=== PATIENT | female | born 1960 | race Caucasian/White ===

== ENCOUNTER 2017-10-01 12:47 | Day surgery (SDC) | payer BC ==
[2017-09-02 16:05] VITALS: BMI 29.0
[~2017-10-01] VITALS: Ht 160 cm; Wt 75.0 kg
--- NOTE | 2017-10-01 11:21 | History and Physical ---
History & Physical Date Oct 01, 2017. Chief Complaint right foot pain History of Present Illness The patient is a 57 year old female with complaints of right foot mass that has gotten larger and more painful. She had an MRI done that noted a ganglion cyst of the right foot. She is now being set up for surgical excision. Past Medical/Surgical History Past medical Hx: Depression, Seasonal allergies, Asthma, Scoliosis Past surgical hx: hysterectomy, breast reduction Social hx: denies tobacco and alcohol use. Allergies Coded Allergies: Neomycin (Verified Allergy, Severe, EYE - ITCHY,WATERY,BURNING - LOCALIZED , 09/02/17) Dairy (Verified Allergy, Mild, COUGHING, 09/02/17) PER ALLERGY TESTING Eggs or Egg-derived Products (Verified Allergy, Mild, COUGHING, 09/02/17) PER ALLERGY TESTING OKAY TAKING FLU VACCINE Fish (Verified Allergy, Mild, COUGHING, 09/02/17) OKAY WITH CONTRAST DYE FROM HYSTEROSALPINGOGRAM (HSG) PER ALLERGY TESTING NUTS (Verified Allergy, Mild, COUGHING, 09/02/17) PER ALLERGY MD Home Medications Scheduled Azelastine HCl (Azelastine Hydrochloride), 1 SPRAY NA BID Cholecalciferol (Vitamin D), 1,000 UNIT PO QAM Fish Oil ([place]-3), 1 CAP PO QAM Magnesium (Magnesium), 250 MG PO QAM Multivitamin (Multivitamin), 1 TAB PO QAM Sertraline (Zoloft), 25 MG PO QAM Vitamin E (Vitamin E), 400 UNITS PO QAM [Allergy Shot], 1 DOSE SQ WK Scheduled PRN Albuterol Hfa (Ventolin Hfa), 2 PUFFS INH Q6H PRN for Shortness of Breath Ibuprofen (Motrin), 400 MG PO BID PRN for Pain Physical Examination Skin: warm/dry, no rash Eyes: normal inspection ENT: normal ENT inspection Head: normocephalic, atraumatic Neck: supple, no adenopathy, trachea midline Respiratory/Chest: lungs clear, normal breath sounds, no respiratory distress Cardiovascular: regular rate, rhythm Abdomen / GI: normal bowel sounds, non tender Extremities: + pertinent finding (Right foot: mass at the dorsolateral aspect of the foot. Tender along the mass near the 4th/5th TMT joints. ) Neurologic/Psych: no motor/sensory deficits, alert, oriented x 3 Diagnosis Right foot ganglion cyst Plan of Treatment Recommend a right foot excision mass of the dorsolateral foot. All potential risks, benefits, complications, alternatives, and rehab have been discussed with the patient and she wishes to proceed. She will be scheduled for 10.01.17.
[~2017-10-01 12:47] MED LIST: ALLERGY SHOT SQ; AZEL0.1S2; CHOL100010 PO; IBUP-1459 PO; LACTATED RINGER'S 1000ML 1,000 ML IV SCH; MAGN250T9 PO; MULT-506 PO; OMEG10007 PO; SERT25TA PO; VITA1TAB4 PO; VNTHFA/IN INH
[2017-10-01 13:20] VITALS: BP 128/79; PULSE 66; TEMP 36.7; O2SAT 99; Ht 160 cm; Wt 75.0 kg
[2017-10-01] MEDS ORDERED: LIDOCAINE HCL 2% 2 ML VIAL (20MG/ML) ONE (13:32)
[2017-10-01] MEDS ORDERED: MIDAZOLAM HCL 1 MG/ML 2ML VIAL ONE (13:32)
[2017-10-01] MEDS ORDERED: ONDANSETRON INJ 2 MG/ML 2 ML VIAL ONE ×2 (13:32→16:14)
[2017-10-01] MEDS ORDERED: FENTANYL CITRATE INJ 50 MCG/1 ML 2 ML VIAL ONE (13:32)
[2017-10-01] MEDS ORDERED: PROPOFOL IV EMULSION 10 MG/ML 20 ML VIAL IV ONE (13:32)
--- NOTE | 2017-10-01 14:36 | History & Physical Bridge Note ---
H&P Re-Evaluation Bridge Note: I have examined the patient, reviewed the History & Physical and in the interval since the performance of the History & Physical I have noted the following changes of clinical significance: No changes noted
[2017-10-01] MEDS ORDERED: BACITRACIN 50000 UNIT VIAL ONE (15:08)
[2017-10-01] MEDS ORDERED: BUPIVACAINE 0.5 % 5 MG/1 ML MPF 30ML VIAL ONE (15:08)
[2017-10-01] MEDS ORDERED: CEFAZOLIN SOD 2000MG/15 ML IV PUSH IV ONE (15:15)
[2017-10-01] MEDS ORDERED: HYDROmorphone INJ 2 MG/ML SYR/VIAL ONE (15:35)
[2017-10-01] MEDS ORDERED: PROMETHAZINE HCL INJ 12.5 MG in SODIUM CHLORIDE 0.9% 50ML 50 ML IV PRN (16:00)
[2017-10-01] MEDS ORDERED: FENTANYL CITRATE INJ 50 MCG/1 ML 2 ML VIAL IV PRN (16:00)
[2017-10-01] MEDS ORDERED: EpHEDrine SULFATE INJ 50 MG/ML AMP IV PRN (16:00)
[2017-10-01] MEDS ORDERED: ONDANSETRON INJ 2 MG/ML 2 ML VIAL IV PRN (16:00)
[2017-10-01] MEDS ORDERED: HYDROmorphone INJ 1 MG/ML SYR IV PRN (16:00)
[2017-10-01] MEDS ORDERED: ATROPINE SULFATE 0.1 MG/ML 5ML SYR IV PRN (16:00)
--- NOTE | 2017-10-01 16:06 | [facility] Post Operative Brief Note ---
Immediate Operative Summary Operative Date Oct 01, 2017. Pre-Operative Diagnosis Ganglion Cyst Dorsolateral Right Foot Post-Operative Diagnosis Ganglion Cyst Dorsolateral Right Foot, Procedure(s) Performed 1. Right Foot Excision Ganglion Cyst 2. Capsulotomy 4th and 5th tarsometatarsal joints 3. Repair 4th and 5th tarsometatarsal joint capsules Surgeon Dr. Thompson Physician Scribe Surgeon(s) none Estimated Blood Loss 1 ml Findings Consistent with Post-Op Diagnosis Specimens a. right foot ganglion cyst Drains None Anesthesia Type General (with local) Complication(s) none Disposition Accompanied Pt To Recover: no Disposition: Recovery Room / PACU
[2017-10-01] MEDS ORDERED: ESMOLOL HCL 10 MG/ML 10 ML VIAL ONE (16:14)
[2017-10-01] MEDS ORDERED: DEXAMETHASONE SOD INJ 4 MG/ML VIAL ONE (16:14)
--- NOTE | 2017-10-01 16:22 | Discharge Instructions ---
Discharge Instructions Date of Service Oct 01, 2017. Admission Reason for Admission: Right Ankle/Foot Ganglion Cyst Discharge Discharge Diagnosis / Problem: Right Ankle/Foot Ganglion Cyst Discharge Goals Goal(s): Decrease discomfort, Improve function Activity Recommendations Activity Limitations: per Instructions/Follow-up section . Instructions / Follow-Up Instructions / Follow-Up ACTIVITY RECOMMENDATIONS: Limitations: Heel weight bearing only if able to tolerate. SPECIAL CARE INSTRUCTIONS: * Some drainage onto the dressing is normal and is no cause for alarm. * Some swelling is natural especially after walking. * When resting, keep your foot elevated above the level of your heart. * Call [facility] if you notice: -Increased drainage -Fever over 101 degrees F -Severe constant pain BANDAGE: * Leave bandage/cast in place unless otherwise directed. * Keep bandage/cast dry at all times. Begin EC ASA 81mg PO daily for 2 weeks FOLLOW UP VISIT WITH DR. POLK If appointment is not already scheduled: Please call [facility] after you get home today to schedule a follow-up appointment for [address] Polk at . Current Hospital Diet Patient's current hospital diet: Discharge Diet Recommended Diet: Regular Diet Procedures Procedures Performed: 1. Right Foot Excision Ganglion Cyst 2. Capsulotomy 4th and 5th tarsometatarsal joints 3. Repair 4th and 5th tarsometatarsal joint capsules Pending Studies Studies pending at discharge: no Medical Emergencies . Who to Call and When: Medical Emergencies: If at any time you feel your situation is an emergency, please call 911 immediately. . Non-Emergent Contact Non-Emergency issues call your: Surgeon Call Non-Emergent contact if: temperature is above 101, your pain is not controlled, wound has increased drainage, wound has increased redness . "Provider Documentation" section prepared by Cristiano Pokl. . VTE Core Measure Inpt VTE Proph given/why not?: Other Anticoagulation
--- NOTE | 2017-10-01 16:36 | Anesthesiology Progress Note ---
Anesthesia Post Op Note Date & Time Oct 01, 2017 at 16:36 Vital Signs Pain Intensity: 2 Vital Signs Past 12 Hours Date Time Temp Pulse Resp B/P (MAP) Pulse Ox O2 Delivery O2 Flow Rate FiO2 10/01/17 16:35 80 17 137/77 95 Room Air 10/01/17 16:25 83 22 131/76 100 Oxymask 10 10/01/17 16:15 100 15 137/76 100 Oxymask 10 10/01/17 16:09 36.3 88 20 104/83 100 Oxymask 10 10/01/17 13:20 36.7 66 18 128/79 (95) 99 Room Air Notes Mental Status: alert / awake / arousable, participated in evaluation Pt Amnestic to Procedure: Yes Nausea / Vomiting: adequately controlled Pain: adequately controlled Airway Patency, RR, SpO2: stable & adequate BP & HR: stable & adequate Hydration State: stable & adequate Anesthetic Complications: no major complications apparent
[2017-10-01 16:55] VITALS: BP 123/68; PULSE 71; TEMP 36.5; O2SAT 100
[2017-10-01 17:25] VITALS: BP 126/69; PULSE 74; TEMP 36.5; O2SAT 100
--- NOTE | 2017-10-01 18:30 | OPERATIVE REPORT ---
DATE OF OPERATION: 10/01/2017 PREOPERATIVE DIAGNOSIS: Ganglion cyst, dorsolateral right foot. POSTOPERATIVE DIAGNOSES: 1. Ganglion cyst, dorsal lateral right foot. 2. Tear of the joint capsule of the fourth and fifth tarsometatarsal joints. PROCEDURES: 1. Right foot excision ganglion cyst, dorsal lateral foot. 2. Capsulotomy of the fourth and fifth tarsometatarsal joints and exploration. 3. Repair of the fourth and fifth tarsometatarsal joint capsules. SURGEON: Dr. Thompson. CUSTOM DESIGNER: None. ANESTHESIA: General LMA with local. SPECIMENS: Ganglion cyst, dorsal lateral right foot. DRAINS: None. COMPLICATIONS: None. BLOOD LOSS: 2 mL. PERTINENT HISTORY: This is a 57-year-old female with chronic ongoing history of painful mass, dorsal lateral aspect of the right foot. She attempted and failed conservative management including shoewear modification, activity modification, observation, rest, anti-inflammatories, use of ice packs, heating packs and physician directed home exercises. She had radiographs and an MRI which demonstrated a septated lobulated fluid filled mass of dorsal lateral aspect of the right foot and she was then scheduled for surgery as indicated. All potential risks, benefits, complications, alternatives, rehab, potential for incomplete relief of symptoms, need for further surgery, DVT, PE, , persistent pain, swelling, scarring, weakness, neurovascular injury, persistent or recurrence were discussed with the patient. The patient decided to proceed with the procedure as indicated. DESCRIPTION OF PROCEDURE: The patient was taken to the operative suite and placed supine on the operating room table. I reviewed the consent and identification of proper operative site, the patient was anesthetized, LMA was placed. Tourniquet was placed high on the right thigh over cast padding; however, was not used during the case. Right lower extremity was then sterilely prepped and draped in usual fashion, elevated and exsanguinated with Esmarch bandage and Esmarch tourniquet applied over sterile surgical towel at the level of the ankle. Next, a 15 blade scalpel was used to make an incision centered over the mass over the dorsal lateral aspect of the right foot. This was at the level of the fourth and fifth tarsometatarsal joint. The incision was deepened through subcutaneous tissue, meticulous hemostasis was achieved with electrocautery. Full thickness skin flaps were developed. The sensory cutaneous nerves were identified, freed, retracted, and protected. Next, careful dissection was performed down to the mass which was obvious. A tenotomy scissor was used to carefully defined the mass with a gentle soft tissue dissection and then the mass was then excised. It was punctured and noted to have a gelatinous clear fluid consistent with a ganglion cyst. This had a stalk which did proceed to the level of the fourth and fifth tarsometatarsal joint bases. At this point, dissection was deepened through the fascia and connective tissue to the level of the fourth and fifth tarsometatarsal joints. Capsulotomy was performed with a 15 blade scalpel of the fourth and fifth tarsometatarsal joints revealing a small tear in the joint capsules of the fourth and fifth tarsometatarsal joints. This was irrigated with sterile normal saline until clear. Next, the joint capsules of the fourth and fifth tarsometatarsal joints were then repaired using interrupted 4-0 FiberWire suture. The wound was irrigated with sterile normal saline and the skin was then closed using 4-0 nylon sutures. Approximately, 15 mL of local anesthetic was then injected around the incision site and then a sterile compressive dressing, Russ wrap and a low walking boot was then applied. The tourniquet was released. The patient was awakened and taken to recovery in stable condition. I attest to the content of the Intraoperative Record and any orders documented therein. Any exception s are noted below.
== END 2017-10-01 17:35 | disposition home or self-care (01) ==
LOC: C.ACU 12:47
PROVIDERS: ATTEND Orthopaedic Surgery Sports Medicine
DX: M67.471 Ganglion, right ankle and foot (principal); S93.691A Other sprain of right foot, initial encounter; J45.909 Unspecified asthma, uncomplicated; F32.9 Major depressive disorder, single episode, unspecified; Z90.710 Acquired absence of both cervix and uterus; Z98.890 Other specified postprocedural states; Z88.1 Allergy status to other antibiotic agents; Z91.011 Allergy to milk products; Z91.012 Allergy to eggs; Z91.013 Allergy to seafood; Z91.018 Allergy to other foods; Z79.899 Other long term (current) drug therapy